=== PATIENT | female | born 1975 | race Caucasian/White ===

== ENCOUNTER 2022-12-11 08:57 | Emergency (ER) | payer OTHER ==
[2022-12-11] MEDS ORDERED: Morphine 4 MG/ML VIAL ONE ×2 (09:31→10:20)
[2022-12-11] MEDS ORDERED: Ondansetron PF 4 MG/2 ML Vial ONE (09:31)
[2022-12-11 09:33] LABS: #Basophils 0.1 thou/uL (0.0-0.2); #Lymphocytes 1.8 thou/uL (1.20-3.40); #Monocytes 0.5 thou/uL (0.11-0.59); #Neutrophils 7.4 thou/uL (1.40-6.50); %Basophils 0.8 % (0.0-1.0); %Eosinophils 0.3 % (0.0-10.0); %Lymphocytes 18.4 % (21.0-51.0); %Monocytes 4.7 % (0.0-10.0); %Neutrophils 75.8 % (42.0-75.0); Hemoglobin 13.8 g/dL (12.0-16.0); Mean Corpuscular HGB CONC 31.6 g/dL (32.0-36.0); Mean Corpuscular Hemoglobin 26.5 pg (27.0-31.0); Mean Corpuscular Volume 83.9 fl (78.0-98.0); Platelet Count 212 10x3/uL (130-400); RBC Distribution Width 15.3 % (11.5-14.5); White Blood Cell (WBC) Count 9.7 10x3/uL (4.8-10.8)
[2022-12-11 09:41] LABS: BHCG - Serum Negative (NEGATIVE); Pregs Control Background? CLEAR/WHITE (CLR/WHITE); Pregs Control Bar Appear? YES (CONTROL BAR)
[2022-12-11 09:49] LABS: ALT (SGPT) 20 U/L (8-55); AST (SGOT) 18 U/L (5-34); Albumin 4.1 g/dL (3.5-5.0); Alkaline Phosphatase 51 U/L (40-110); Anion Gap 23 mmol/L (10-20); BUN (Urea Nitrogen) 14 mg/dL (7.0-18.7); Bilirubin, Total 0.5 mg/dL (0.2-1.2); Calc. Creatinine Clearance 0 mL/min (70-130); Calcium 8.6 mg/dL (7.8-10.44); Carbon Dioxide 14 mmol/L (22-29); Chloride 108 mmol/L (98-107); Estimated GFR 73; Glucose 136 mg/dL (70-105); Lipase 24 U/L (8-78); Potassium 4.1 mmol/L (3.5-5.1); Protein, Total 7.1 g/dL (6.0-8.3); Sodium 141 mmol/L (136-145)
[2022-12-11 09:54] LABS: Acetaminophen Less than 10 mcg/mL (10.0-30.0); Alcohol 24.8 mg/dL (Less than 10); Salicylate Less than 8.0 mg/dL (15.0-30.0)
[2022-12-11] MEDS ORDERED: Prochlorperazine 10 MG/2 ML VIAL ONE (11:09)
[2022-12-11] MEDS ORDERED: Iopamidol 370 76% 100 ML VIAL ONE (11:47)
[2022-12-11 12:11] LABS: Lactic Acid 1.3 mmol/L (0.5-2.2)
[2022-12-11] MEDS ORDERED: Mag-Al Plus 1200 MG/1200 MG/120 MG/30 ML UDCUP ONE (12:21)
[2022-12-11] MEDS ORDERED: Lidocaine Viscous Sol 2% 15 ml UD Cup ONE (12:21)
== END 2022-12-11 13:31 | disposition home or self-care (01) ==
LOC: BURERS 08:57
DX: R11.10 Vomiting, unspecified (principal); E86.0 Dehydration; E87.20 Acidosis, unspecified; F17.210 Nicotine dependence, cigarettes, uncomplicated
CPT/HCPCS: 36415; 74177; 80053; 80307; 83605; 83690; 84703; 85025; 96361; 96374; 96375; 96376; J0780; J2270; J2405; Q9967

== ENCOUNTER 2023-01-24 13:38 | Emergency (ER) | payer OTHER ==
[2023-01-24 14:28] LABS: #Basophils 0.1 thou/uL (0.0-0.2); #Eosinphils 0.2 thou/uL (0.0-0.7); #Lymphocytes 1.7 thou/uL (1.20-3.40); #Monocytes 0.5 thou/uL (0.11-0.59); #Neutrophils 6.8 thou/uL (1.40-6.50); %Basophils 0.6 % (0.0-1.0); %Lymphocytes 18.9 % (21.0-51.0); %Monocytes 4.9 % (0.0-10.0); %Neutrophils 73.7 % (42.0-75.0); Hematocrit 39.7 % (36.0-47.0); Hemoglobin 12.1 g/dL (12.0-16.0); Mean Corpuscular HGB CONC 30.4 g/dL (32.0-36.0); Mean Corpuscular Hemoglobin 26.2 pg (27.0-31.0); Mean Corpuscular Volume 86.3 fl (78.0-98.0); Mean Platelet Volume 7.7 fL (7.4-10.4); Platelet Count 186 10x3/uL (130-400); RBC Distribution Width 14.5 % (11.5-14.5); White Blood Cell (WBC) Count 9.2 10x3/uL (4.8-10.8)
[2023-01-24] MEDS ORDERED: Ondansetron PF 4 MG/2 ML Vial ONE (14:36)
[2023-01-24] MEDS ORDERED: Morphine 4 MG/ML VIAL ONE ×2 (14:36→15:44)
[2023-01-24 14:37] LABS: INR-International Normal Ratio 0.9; Prothrombin Time 12.8 sec (12.0-14.7)
[2023-01-24 14:43] LABS: AST (SGOT) 11 U/L (5-34); Albumin 3.9 g/dL (3.5-5.0); Alkaline Phosphatase 49 U/L (40-110); Anion Gap 12 mmol/L (10-20); BUN (Urea Nitrogen) 26 mg/dL (7.0-18.7); Bilirubin, Total 0.3 mg/dL (0.2-1.2); Calc. Creatinine Clearance 0 mL/min (70-130); Calcium 8.5 mg/dL (7.8-10.44); Carbon Dioxide 18 mmol/L (22-29); Chloride 114 mmol/L (98-107); Estimated GFR 51; Globulin 2.9 g/dL (2.4-3.5); Glucose 119 mg/dL (70-105); Lipase 42 U/L (8-78); Potassium 4.3 mmol/L (3.5-5.1); Protein, Total 6.8 g/dL (6.0-8.3); Sodium 140 mmol/L (136-145)
[2023-01-24 14:55] LABS: Bilirubin Negative (Negative); Blood, Urine Moderate (Negative); Clarity Clear (Clear); Glucose, Urine (Dipstick) Negative (Negative); Ketone, Urine Negative (Negative); Leukocyte Negative (Negative); Nitrite Negative (Negative); Protein, Urine (Dipstick) Negative (Neg-Trace); Urobilinogen 0.2 mg/dL (Less than 2); pH, Urine 6.5 (5.0-9.0)
[2023-01-24 14:57] LABS: Pregnancy Test - Urine (BHCG) Negative (Negative); Pregu Control Background? CLEAR/WHITE (CLR/WHITE); Pregu Control Bar Appear? YES (CONTROL BAR)
[2023-01-24 15:06] LABS: Bacteria/HPF 2+ HPF (None Seen); CAUTI Indications for Culture Acute Hematuria; RBC/HPF 0-3 HPF (0-3); Squamous Epithelial 0-3 HPF (0-3); Urine Culture Reflex No No; WBC/HPF 0-3 HPF (0-3)
[2023-01-25 03:45] LABS: ALT (SGPT) 12 U/L (8-55)
== END 2023-01-24 17:21 | disposition home or self-care (01) ==
LOC: BURERS 13:38
DX: N93.9 Abnormal uterine and vaginal bleeding, unspecified (principal); R10.31 Right lower quadrant pain; R10.32 Left lower quadrant pain; F17.210 Nicotine dependence, cigarettes, uncomplicated
CPT/HCPCS: 74176; 80053; 81001; 81025; 83605; 83690; 85025; 85610; 96374; 96375; 96376; J2270; J2405

== ENCOUNTER 2023-07-31 05:16 | Emergency (ER) | payer OTHER ==
[2023-07-31] MEDS ORDERED: Ketorolac Tromethamine 30 MG (1 mL) VIAL ONE (05:37)
[2023-07-31] MEDS ORDERED: Cyclobenzaprine 10 MG TAB ONE (06:15)
[2023-07-31] MEDS ORDERED: Ondansetron ODT 4 MG TAB ONE (06:15)
[2023-07-31] MEDS ORDERED: predniSONE 20 MG TAB ONE (06:23)
[2023-07-31] MEDS ORDERED: HYDROmorphone 0.5 MG/0.5 ML SYRINGE ONE (06:33)
== END 2023-07-31 07:55 | disposition home or self-care (01) ==
LOC: BURERS 05:16
DX: M54.50 Low back pain, unspecified (principal); F17.290 Nicotine dependence, other tobacco product, uncomplicated; F17.210 Nicotine dependence, cigarettes, uncomplicated
CPT/HCPCS: 96372; 99283; J1170; J1885; J7512; Q0162